=== PATIENT | female | born 1980 | race Caucasian/White ===

== ENCOUNTER → 2019-11-11 | Outpatient (CLI) | payer OTHER ==
[2015-12-23 20:50] VITALS: BP 108/74
[~2019-11-11] MED LIST: IBUP-1007 PO
--- NOTE | 2019-11-14 10:24 | RAD ---
EXAM: PET W CT SKULL TO MIDTHI EXAM DATE: 11/11/2019 INDICATION: Lung mass RADIOPHARMACEUTICAL: 15.5 mCi of F-18 Fluorodeoxyglucose (FDG) I.V. via the right antecubital fossa. TECHNIQUE: Patient weight: 180 pounds. Following at least four-hour fasting, the patient's blood glucose was 112 mg/dl. Approximately 1 hour after administration of FDG, overlapping emission scanning was performed from the orbital meatal line through the pelvis. A low-dose CT was performed for attenuation correction purposes and anatomic localization. Fused images of PET and CT were reviewed. Any standardized uptake values (SUV) reported are maximum values within a volume region of interest, expressed in gm/ml. COMPARISON: CT soft tissue neck with IV contrast of 11/20/2015 FINDINGS: PET: In the head and neck, prominent uptake in the bilateral faucial and lingual tonsils is seen, to max SUV of 7.29 on the left faucial tonsil, 6.48 and the right faucial tonsil and 4.17 and the lingual tonsil. No abnormal uptake in the cervical lymph nodes or intracranially is noted. In the chest, a superior segment left lower lobe lung mass shows FDG uptake to max SUV of 2.73. There is also abnormal FDG uptake in the distal thoracic esophagus and in the gastric cardia to max SUV of 5.59. Mediastinal background activity measures 2.5 to max SUV. In the abdomen, localized uptake in hepatic segment 4A to max SUV of 4.89 is seen, above background liver activity of 3.13. There is localized FDG uptake in the region of the ampulla of [place] to max SUV of 3.02. In the pelvis, asymmetric focal uptake in the anterior right thigh muscles along the lateral aspect of the iliopsoas muscle superficial to the right femoral head shows FDG uptake to max SUV of 8.97. CT: Head and neck shows right greater than left bilateral mild faucial tonsillar enlargement is no cervical adenopathy by CT size criteria on unenhanced imaging. Thyroid and salivary glands are unremarkable. No aggressive osseous lesions. No acute intracranial findings. Chest shows a lobulated superior segment left lower lobe lung mass measuring 3.2 x 3.0 cm x 3.3 cm (AP by transverse by craniocaudal), minimal right greater than left biapical paraseptal pattern emphysematous change and mild mosaic pattern to the lungs that could reflect minimal air trapping. No pleural effusion no mediastinal adenopathy or mass. Minimal wall thickening of the distal thoracic esophagus near the gastroesophageal junction. Abdomen and pelvis show very subtle 3 cm mass in hepatic segment 4. No other solid abdominal organ lesions are identified. No evidence of bowel obstruction, perforation or acute inflammation. No abdominal adenopathy, ascites, mass or nodularity. No free air. Normal caliber major abdominal vessels with scattered arterial calcifications. Pelvic organs show an absent uterus, normal urinary bladder and no pelvic mass. The ovaries are not well seen and may be surgically absent as well. No fluid collection. No pelvic adenopathy. Bones show no acute or aggressive appearing osseous lesions.. No discrete muscle or soft tissue mass in the pelvis is identified. IMPRESSION: 1. Left lung mass shows abnormal FDG uptake to max SUV of 2.73. Favor primary lung malignancy over metastatic deposit or inflammatory mass. Recommend biopsy. 2. Distal thoracic esophageal wall thickening shows abnormal FDG uptake to max SUV of 5.59. Consider correlation with endoscopy. 3. Right hepatic lobe subtle 3 cm mass shows uptake to max SUV of 4.89. This could be better characterized with liver mass protocol abdominal MRI or CT as clinically warranted. 4. Uptake in the proximal small bowel, right hip and in Waldeyer's ring as described could be benign and incidental. Attention on follow-up is recommended. Electronically signed by: Poonam Paredes MD (11/14/2019 10:21 AM) [id number]
== END ==
LOC: PETSC 09:03
PROVIDERS: ATTEND Internal Medicine Critical Care Medicine
DX: C80.1 Malignant (primary) neoplasm, unspecified (principal); R91.8 Other nonspecific abnormal finding of lung field
CPT/HCPCS: 78815; A9552

== ENCOUNTER 2019-11-24 06:55 | Outpatient (CLI) | payer OTHER ==
[2019-11-24] VITALS (24 sets, daily range): BP systolic 11–140; BP diastolic 58–93
[~2019-11-24] VITALS: Ht 154.9 cm; Wt 81.6 kg
[2019-11-24 07:36] LABS: BASO # 0.1 x10^3/uL (0.0-0.2); BASO % 1 % (0-3); EOS # 0.1 x10^3/uL (0.0-0.7); EOS % 2 % (0-3); HEMATOCRIT 42.9 % (36.0-47.0); HEMOGLOBIN 14.8 g/dL (12.0-15.5); LYMPH % 46 % (24-48); MEAN CORPUSCULAR HEMOGLOBIN 31 pg (25-35); MEAN CORPUSCULAR HGB CONC 35 g/dL (31-37); MEAN CORPUSCULAR VOLUME 91 fL (79-100); MONO # 0.4 x10^3/uL (0.0-1.1); MONO % 7 % (0-9); NEUT % 45 % (31-73); PLATELET COUNT 408 x10^3/uL (140-400); RED BLOOD COUNT 4.72 x10^6/uL (3.50-5.40); RED CELL DISTRIBUTION WIDTH 12.9 % (11.5-14.5); WHITE BLOOD COUNT 6.6 x10^3/uL (4.0-11.0)
[2019-11-24 07:47] LABS: PROTHROMBIN TIME PATIENT 12.1 SEC (11.7-14.0)
[2019-11-24] MEDS ORDERED: LIDOCAINE WITH 8.4% SOD BICARB 3 ML DISP.SYRIN. ONE (08:18)
[2019-11-24] MEDS ORDERED: MIDAZOLAM HCL/PF 2 MG/2 ML VIAL. ONE (08:21)
[2019-11-24] MEDS ORDERED: fentaNYL PF VIAL 100 MCG/2 ML VIAL ONE (08:21)
[2019-11-24] MEDS ORDERED: LIDOCAINE WITH 8.4% SOD BICARB 3 ML DISP.SYRIN. INJ ONE (08:30)
[2019-11-24] MEDS ORDERED: MIDAZOLAM HCL/PF 2 MG/2 ML VIAL. IV ONE (08:30)
[2019-11-24] MEDS ORDERED: fentaNYL PF VIAL 100 MCG/2 ML VIAL IV ONE (08:30)
--- NOTE | 2019-11-24 12:07 | RAD ---
PORTABLE CHEST 1V Clinical Indication: Reason: Post left lung biopsy / Spl. Instructions: / History: Comparison: CT guided lung biopsy, earlier same day.. Findings: The cardiomediastinal silhouette is normal. There is left lower lobe mass. Lungs are otherwise clear. There is no pneumothorax. No pleural effusion is appreciated. No acute bone abnormality. IMPRESSION: 1. No pneumothorax. 2. Left lower lobe mass. Electronically signed by: Rodney Quijano MD (11/24/2019 12:05 PM) [id number]
--- NOTE | 2019-11-24 14:07 | RAD ---
CT-guided biopsy left lung mass. 11/24/2019 12:01 PM Indication: Liver Mass, LEFT LUNG MASS, possible malignancy Discussion: The risks and benefits of the procedure, including but not limited to, bleeding, pneumothorax, and infection were discussed patient. Informed consent was obtained. The patient was brought to the CT scanner and placed in the prone position. A timeout procedure was performed. CT imaging redemonstrates a mass in the left lower lobe. The overlying soft tissues were prepped and draped using maximum sterile barrier technique. 1% lidocaine without epinephrine was administered for local anesthesia. Under intermittent CT guidance, 17-gauge needle was advanced into the mass. Multiple core biopsy samples were obtained samples were placed in formalin. The needle was removed. Manual pressure was held. Repeat CT demonstrates minimal perilesional hemorrhage without pneumothorax or other immediate complication. . The procedure was performed under conscious sedation including continuous cardiopulmonary monitoring via dedicated sedation nurse. Sedation time 27 minutes Impression: CT-guided biopsy, left lower lobe mass. PQRS Compliance Statement: One or more of the following individualized dose reduction techniques were utilized for this examination: 1. Automated exposure control 2. Adjustment of the mA and/or kV according to patient size 3. Use of iterative reconstruction technique
--- NOTE | 2019-11-25 17:07 | PATHOLOGY ---
[facility] Accession Number: [id number] . 01 Material submitted: . lung - LEFT LUNG BIOPSY. Modifiers: left . 01 Clinical history: . Left lung mass . 02 Diagnosis: Lung tissue, left lung mass CT guided needle biopsy: - ADENOCARCINOMA, MIXED ACINAR AND PAPILLARY SUBTYPES, MODERATELY-WELL DIFFERENTIATED. SEE COMMENT. (JPM:[facility] 11/25/2019) P 11/25/2019 1626 Local . 02 Comment: Sections of the left lung mass CT guided needle biopsy show extensive replacement of lung parenchyma by a malignant epithelial neoplasm. The latter consists of crowded acini and papillary structures which are lined by atypical columnar cells which have eosinophilic vacuolated cytoplasm and which possess basally situated, moderately pleomorphic hyperchromatic nuclei containing prominent nucleoli. There are scattered mitotic figures present. The morphologic features are consistent with a diagnosis of pulmonary adenocarcinoma, mixed acinar and papillary subtypes, acinar predominant. A panel of immunoperoxidase stains will be performed, the results of which will be the subject of an addendum report. The case is also examined by Dr. Gramajo, who concurs with the diagnosis. The case is discussed with Dr. Eason on 11/25/2019 at 10:30 AM. (JPM:[facility] 11/25/2019) . 02 Electronically signed: . Awais Noel MD, Pathologist NPI- [id number] . 01 Gross description: . The specimen is received in formalin, labeled "Gabbi Pineda, left lung biopsy" and consists of 2 reeves needle cores measuring 0.6 and 1.8 cm in length and 0.1 cm in diameter. They are entirely submitted intact in A1. (JM; 11/24/2019) JFQ/JFQ 11/24/2019 1531 Local . 02 Pathologist provided ICD-10: C34.92 . 02 CPT . 467184 Specimen Comment: A courtesy copy of this report has been sent to [phone] Specimen Comment: [id number] Specimen Comment: Report sent to / DR EASON Performed at: 01 [facility] [address] [place] [address] [address], [place] [id number] MD Levon Banks MD Phone: [phone] Performed at: 02 [facility] [address] [place], [place] [id number] MD Awais Noel MD Phone: [phone]
== END 2019-11-24 12:45 | disposition home or self-care (01) ==
LOC: INTRAD 06:55
PROVIDERS: ATTEND Internal Medicine Critical Care Medicine
DX: C34.92 Malignant neoplasm of unspecified part of left bronchus or lung (principal)
CPT/HCPCS: 32405; 36415; 71045; 77012; 85025; 85610; 85730; J2250; J3010; J3490; 99152; 99153

== ENCOUNTER 2019-12-06 06:50 | Outpatient (CLI) | payer OTHER ==
[~2019-12-06] VITALS: Ht 154.9 cm; Wt 81.6 kg
[2019-12-06] VITALS (16 sets, daily range): BP systolic 112–149; BP diastolic 74–101
[2019-12-06] MEDS ORDERED: VARE1TAB21 PO (07:25)
[2019-12-06] MEDS ORDERED: GELATIN SPONGE SIZE 12-7MM SPONGE. ONE (07:58)
[2019-12-06] MEDS ORDERED: LIDOCAINE WITH 8.4% SOD BICARB 3 ML DISP.SYRIN. ONE (07:58)
[2019-12-06] MEDS ORDERED: fentaNYL PF VIAL 100 MCG/2 ML VIAL ONE (08:44)
[2019-12-06] MEDS ORDERED: MIDAZOLAM HCL/PF 2 MG/2 ML VIAL. ONE (08:44)
[2019-12-06] MEDS ORDERED: fentaNYL PF VIAL 100 MCG/2 ML VIAL IV ONE (09:00)
[2019-12-06] MEDS ORDERED: LIDOCAINE WITH 8.4% SOD BICARB 3 ML DISP.SYRIN. IJ ONE (09:00)
[2019-12-06] MEDS ORDERED: MIDAZOLAM HCL/PF 2 MG/2 ML VIAL. IV ONE (09:00)
[2019-12-06] MEDS ORDERED: oxyCODONE/APAP 5/325 1 TAB TABLET PO ONE (09:30)
--- NOTE | 2019-12-06 11:28 | NUR ---
Discharge Note: BEAU RAMÍREZ Discharge instructions and discharge home medications reviewed with Patient and a copy given. All questions have been answered and understanding verbalized. Patient ate toast drank fluids with no issues. The following instructions and handouts were given: Moderate sedation and Liver Biopsy after care. Discontinued lines and drains: Right AC, dressing clean dry intact. Patient discharged to home with family member via wheelchair to private vehicle.
--- NOTE | 2019-12-06 12:35 | RAD ---
Procedure: CT guided segment IV hepatic mass biopsy. The procedure, risks, and complications to include bleeding, organ damage, nerve damage, and infection were explained to the patient and her family and they understood and wished to proceed. Consent form signed. INDICATION: Lung cancer, hypoattenuating, hypermetabolic hepatic mass concerning for metastasis COMPARISON: PET/CT dated 11/11/2019 The upper abdomen was prepped and draped using maximal sterile technique and one percent Xylocaine was used for local anesthesia. CT scan: CT scan again showed a subtle area of hypoattenuation in segment IV of the liver corresponding to the hypermetabolic area seen on PET. Technique: Utilizing a coaxial technique, an 18-gauge biopsy needle was advanced into the segment [address] guidance. 5 core biopsies were obtained and placed in formalin for evaluation. Tract was embolized with Gelfoam torpedos. Repeat post biopsy CT scan shows no evidence of immediate complication. Sedation: Initially, procedure was attempted without sedation, but patient started experiencing pain at the region of the liver capsule during biopsy needle advancement. At that point, moderate sedation was initiated. Conscious sedation for 12 minutes. Intravenous Versed and fentanyl were administered. The patient was monitored by pulse oximetry and cardiovascular monitoring equipment and observed by the nurses in attendance. Complications: None Contrast: None The patient tolerated the procedure well and returned to the recovery area in stable condition Conclusion: CT guided segment IV hepatic hypoattenuating lesion biopsy. PQRS Compliance Statement: One or more of the following individualized dose reduction techniques were utilized for this examination: 1. Automated exposure control 2. Adjustment of the mA and/or kV according to patient size 3. Use of iterative reconstruction technique
== END 2019-12-06 11:15 | disposition home or self-care (01) ==
LOC: INTRAD 06:50
PROVIDERS: ATTEND Internal Medicine Pulmonary Disease
DX: R16.0 Hepatomegaly, not elsewhere classified (principal)
CPT/HCPCS: 47000; 77012; 99152; J2250; J3010; J3490

== ENCOUNTER → 2019-12-30 | Outpatient (CLI) | payer OTHER ==
[2019-12-06 10:55] VITALS: BP 118/78
[~2019-12-30] MED LIST changes: +VARE1TAB21 PO
[2019-12-30 11:50] LABS: BASO % 1 % (0-3); EOS # 0.2 x10^3/uL (0.0-0.7); EOS % 3 % (0-3); HEMATOCRIT 41.2 % (36.0-47.0); HEMOGLOBIN 14.8 g/dL (12.0-15.5); LYMPH # 2.7 x10^3/uL (1.0-4.8); LYMPH % 50 % (24-48); MEAN CORPUSCULAR HEMOGLOBIN 32 pg (25-35); MEAN CORPUSCULAR HGB CONC 36 g/dL (31-37); MEAN CORPUSCULAR VOLUME 89 fL (79-100); MONO # 0.5 x10^3/uL (0.0-1.1); MONO % 9 % (0-9); NEUT % 37 % (31-73); PLATELET COUNT 410 x10^3/uL (140-400); RED BLOOD COUNT 4.63 x10^6/uL (3.50-5.40); RED CELL DISTRIBUTION WIDTH 12.9 % (11.5-14.5); WHITE BLOOD COUNT 5.5 x10^3/uL (4.0-11.0)
[2019-12-30 12:07] LABS: CALCIUM 9.1 mg/dL (8.5-10.1); GFR 61.4; POTASSIUM 3.8 mmol/L (3.5-5.1)
[2019-12-30 12:11] LABS: ALBUMIN 3.5 g/dL (3.4-5.0); ALBUMIN/GLOBULIN RATIO 0.8 (1.0-1.7); TOTAL BILIRUBIN 0.2 mg/dL (0.2-1.0); TOTAL PROTEIN 7.9 g/dL (6.4-8.2); URIC ACID 5.2 mg/dL (2.6-6.0)
[2020-01-01 11:09] LABS: KAPPA LAMBDA RATIO 1.03 (0.26-1.65); LAMBDA FREE 21.4 mg/L (5.7-26.3)
[2020-01-02 10:10] LABS: H PYLORI IGA <9.0 units (0.0-8.9); H PYLORI IGM <9.0 units (0.0-8.9)
[2020-01-02 15:12] LABS: ALBUM 3.4 g/dL (2.9-4.4); ALPHA 1 0.2 g/dL (0.0-0.4); PROTEIN TOTAL 6.7 g/dL (6.0-8.5)
== END | disposition home or self-care (01) ==
LOC: ONCLAB 11:24
PROVIDERS: ATTEND Internal Medicine Hematology & Oncology
DX: C34.32 Malignant neoplasm of lower lobe, left bronchus or lung (principal)
CPT/HCPCS: 36415; 80053; 83520; 83615; 84165; 84550; 85025; 86677; 86703; 86705; 86709; 86803; 87340

== ENCOUNTER 2020-01-04 06:40 | Outpatient (CLI) | payer OTHER ==
[~2020-01-04] VITALS: Ht 154.9 cm; Wt 83.0 kg
[2020-01-04] VITALS (9 sets, daily range): BP systolic 102–150; BP diastolic 72–89
[2020-01-04 07:34] LABS: BASO % 1 % (0-3); EOS # 0.2 x10^3/uL (0.0-0.7); EOS % 3 % (0-3); HEMATOCRIT 40.4 % (36.0-47.0); HEMOGLOBIN 14.1 g/dL (12.0-15.5); LYMPH # 3.2 x10^3/uL (1.0-4.8); LYMPH % 46 % (24-48); MEAN CORPUSCULAR HEMOGLOBIN 32 pg (25-35); MEAN CORPUSCULAR HGB CONC 35 g/dL (31-37); MEAN CORPUSCULAR VOLUME 91 fL (79-100); MONO # 0.5 x10^3/uL (0.0-1.1); MONO % 7 % (0-9); NEUT # 3.1 x10^3/uL (1.8-7.7); NEUT % 44 % (31-73); PLATELET COUNT 403 x10^3/uL (140-400); RED BLOOD COUNT 4.46 x10^6/uL (3.50-5.40); RED CELL DISTRIBUTION WIDTH 13.3 % (11.5-14.5)
[2020-01-04] MEDS ORDERED: LIDOCAINE WITH 8.4% SOD BICARB 3 ML DISP.SYRIN. ONE (07:44)
[2020-01-04 07:49] LABS: CALCIUM 9.1 mg/dL (8.5-10.1); GFR 61.4; POTASSIUM 4.1 mmol/L (3.5-5.1)
[2020-01-04 07:55] LABS: ALBUMIN 3.5 g/dL (3.4-5.0); TOTAL BILIRUBIN 0.2 mg/dL (0.2-1.0); TOTAL PROTEIN 7.1 g/dL (6.4-8.2)
[2020-01-04 07:58] LABS: PROTHROMBIN TIME PATIENT 11.8 SEC (11.7-14.0)
[2020-01-04] MEDS ORDERED: MIDAZOLAM HCL/PF 2 MG/2 ML VIAL. ONE (08:24)
[2020-01-04] MEDS ORDERED: fentaNYL PF VIAL 100 MCG/2 ML VIAL ONE (08:24)
[2020-01-04] MEDS: LIDOCAINE WITH 8.4% SOD BICARB 3 ML DISP.SYRIN. IJ ONE (08:46)
[2020-01-04] MEDS: MIDAZOLAM HCL/PF 2 MG/2 ML VIAL. IV ONE (08:47)
[2020-01-04] MEDS: fentaNYL PF VIAL 100 MCG/2 ML VIAL IV ONE (08:47)
--- NOTE | 2020-01-04 09:46 | NUR ---
Discharge Note: BEAU RAMÍREZ Discharge instructions and discharge home medications reviewed with Patient and a copy given. All questions have been answered and understanding verbalized. The following instructions and handouts were given: post bone marrow biopsy and adult moderate sedation Discontinued lines and drains: Peripheral IV intact. Patient discharged to Home or Self Care withFamily Membervia Wheelchair
--- NOTE | 2020-01-04 09:54 | NUR ---
pt discharged to home with family. Discharge instructions reviewed and PIV dc'd. pt ambulated and tolerated PO
--- NOTE | 2020-01-04 16:07 | RAD ---
CT-guided bone marrow biopsy. 01/04/2020 2:04 PM Indication: Lymphoma Discussion: The risks and benefits of the procedure, including but not limited to, bleeding and infection were discussed patient. Informed consent was obtained. The patient was brought to the CT scanner and placed in the prone position. A timeout procedure was performed. [employer] CT imaging of the pelvis demonstrated left ilium amenable to bone marrow biopsy. The overlying soft tissues were prepped and draped using maximum sterile barrier technique. 1% lidocaine without epinephrine was administered for local anesthesia. Under intermittent CT guidance, an OncControl needle was advanced into the bone marrow of the left iliac crest. 2 Aspirates and 1 core biopsy samples were obtained. Samples were delivered to pathology was present at the time of procedure. The needle was removed and manual pressure held to achieve hemostasis. No immediate complications were identified. The procedure was performed under conscious sedation including continuous cardiopulmonary monitoring via dedicated sedation nurse. Sedation time: 26 minutes Impression: Successful CT-guided bone marrow biopsy of the left iliac crest . PQRS Compliance Statement: One or more of the following individualized dose reduction techniques were utilized for this examination: 1. Automated exposure control 2. Adjustment of the mA and/or kV according to patient size 3. Use of iterative reconstruction technique
--- NOTE | 2020-01-10 17:07 | PATHOLOGY ---
[facility] Accession Number: [id number] . 01 Material submitted: . PART A: bone - BONE MARROW BIOPSY PART B: bone - BONE MARROW CLOT PART C: bone - BONE MARROW ASPIRATE SLIDES PART D: bone - PERIPHERAL BLOOD SMEARS PART E: bone - BONE MARROW FLOW . 01 Clinical history: . Adenocarcinoma of the lung. . 02 Diagnosis: Peripheral smear: - Borderline slight thrombocytosis. . Bone marrow, aspirate smears, clot section, core biopsy: - Normocellular marrow showing trilineage hematopoiesis, no significant dyspoiesis, and negative for lymphomatous involvement. - Adequate reticuloendothelial iron stores. (JPM:[facility]; 01/10/2020) [facility] [place] 01/10/2020 1152 Local . 02 Comment: The peripheral smear shows a borderline slight thrombocytosis. There is no leukocytosis or anemia. The bone marrow is normocellular and shows trilineage hematopoiesis with no significant dyspoiesis. Flow cytometric analysis shows no immunophenotypic evidence of a lymphoproliferative disorder, increase in blasts, or plasma cell neoplasm. The bone marrow biopsy and clot sections show no morphologic or immunophenotypic evidence of involvement by low grade B-cell lymphoma. (JPM:bereket; 01/10/2020) . . Special stains performed: Retic stain on A1, iron stain on B1 and C1, and immunoperoxidase stains for CD20 and CD3 on A1, and for CD20 and CD3 on B1. . 02 Electronically signed: . Awais Noel MD, Pathologist NPI- [id number] . 01 Gross description: . A. The specimen is received in formalin, labeled "Gabbi Alamosery, BM BX". Received is a single needle core of light reeves bone measuring 2.8 cm in length by 0.3 cm in diameter. The specimen is submitted entirely in cassette A1, following light decalcification. . B. The specimen is received in formalin, labeled "Gabbi Pineda, BM aspirate clot". Received is blood coagulum measuring 0.1 x 0.1 x 0.1 cm in aggregate dimensions. The specimen is filtered and entirely submitted in cassette B1. Due to the minute nature of the specimen, it may not survive processing. (CAA; 01/04/2020) QA/QA 01/10/2020 1131 Local . 02 Microscopic: . Laboratory Data: The WBC count is 7.0 K/CMM, and the automated WBC differential reveals 44% neutrophils, 46% lymphs, 7% monos, 3% eos, and 1% baso. The RBC count is 4.46 M/CMM, hemoglobin 14.1 G/DL, hematocrit 40.4%, MCV 91 FL, MCH 32 PG, MCHC 35 G/DL, and the RDW is 13.3%. The platelet count is 403 K/CMM. The total protein is 7.1 G/DL, albumin 3.5 G/DL, and globulin 3.6 G/DL. Serum protein electrophoresis shows no evidence of a monoclonal spike. The serum kappa is 22.0 MG/L, serum lambda 21.4 MG/L, and the kappa/lambda ratio is 1.03. . Peripheral Smear: The peripheral smear is reviewed. The WBC count is normal. The WBC differential reveals nearly equal-sized populations of segmented neutrophils and lymphocytes, with small populations of monocytes and eosinophils noted. Neutrophils do not show dysplastic changes. There is no significant neutrophilic left shift. There is no leukoerythroblastic reaction. The lymphocyte population consists predominantly of small lymphocytes, having a high N/C ratio and rounded nuclei having a coarsely clumped chromatin. Red blood cells appear normochromic and normocytic and show no significant anisopoikilocytosis. Platelets are borderline slightly increased and appear normal in morphology. . Aspirate Smears and Touch Imprints: Two Blanca's-stained and one iron-stained aspirate smears, and one Blanca's-stained biopsy touch imprint are examined. The smears contain multiple marrow particles. The M/E ratio is within normal range. Erythroid maturation appears normoblastic. There are no megaloblastic or overt dysplastic changes. Granulopoiesis qualitatively appears normal. There is no significant left shift or dysplastic changes. There is no increase of blasts. Megakaryocytes appear adequate in number and are of variable ploidy. There are few scattered admixed plasma cells with no significant increase of plasma cells noted. Lymphocytes are not increased. There is no atypical lymphoreticular infiltrate. The iron stain is insufficient for evaluation of iron stores due to a lack of marrow particles. No ringed sideroblasts are identified. The biopsy touch imprint reveals an admixture of hematopoietic precursors with no atypical lymphoreticular infiltrate noted. . Bone Marrow Biopsy and Clot Sections: Sections of the bone marrow biopsy reveal segments of bone marrow showing focal aspiration artifact and hemorrhage. Preserved areas of the biopsy range between 20-30% and 60% cellular. The clot sections contain several marrow particles which show a similar range of cellularity. There is trilineage hematopoiesis. There is a good admixture of erythroid and granulocytic precursors, which are present in varying stages of maturation. Megakaryocytes appear normal in number and are occasionally present in small clusters. The megakaryocytes are of variable ploidy. There is no increase of plasma cells. There is no atypical lymphoid infiltrate. There are no granulomas. There are no cells foreign to the marrow. To confirm flow cytometric findings and characterize the target cells in a tissue architectural context, a limited panel of immunoperoxidase stains is obtained on the biopsy and clot section and yield the following results: . CD20 (A1): Small population of small lymphocytes positive (approximately 5%) having a scattered interstitial distribution. CD3 (A1): Population of small lymphocytes positive (approximately 10-20%) having a scattered interstitial distribution and occasionally present in small clusters. CD20 (B1): Small population of small lymphocytes positive (approximately 5%) having a scattered interstitial distribution. CD3 (B1): Population of small lymphocytes positive (approximately 10-20%) having a scattered interstitial distribution. . A reticulin stain obtained on the biopsy shows no significant increase of reticulin fibers. An iron stain obtained on the clot section shows adequate to focally mildly increased reticuloendothelial iron stores. No ringed sideroblasts are identified. . . Special Studies: Bone marrow submitted for flow cytometric analysis has a viability of 96.8%. Granulocytes comprise 77.6% of total cells and show phenotypic evidence of maturation. CD45 dim, CD34 positive cells comprise 1.0% of total cells. Monocytes comprise 4.3% of total cells and show phenotypic evidence of maturation. Plasma cells comprise 0.2% of total cells and show unremarkable surface marker expression. Lymphocytes comprise 14.9% of total cells. T-cells comprise 79% of lymphoid cells and show a CD4/CD8 ratio of 2.4. NK-cells comprise 3% of lymphoid cells. Mature B-cells comprise 15% of lymphoid cells and are polyclonal with kappa:lambda ratio of 1.2. . Bone marrow submitted for cytogenetic analysis shows a normal female karyotype in all cells analyzed. (JPM/db; 01/09/2020) . 02 Pathologist provided ICD-10: D47.3 . 02 CPT . 366763, 402002, 966093, 914699, 231728, 532120, 042007, 241715, L22781, [id number] Specimen Comment: A courtesy copy of this report has been sent to [phone] Specimen Comment: [id number] Specimen Comment: Report sent to / DR FRAZIER Performed at: 01 [facility] [address] [facility] [address], [place] [id number] MD Levon Banks MD Phone: [phone] Performed at: 02 [facility] [address] [place], [place] [id number] MD Awais Noel MD Phone: [phone]
== END 2020-01-04 09:55 | disposition home or self-care (01) ==
LOC: INTRAD 06:40
PROVIDERS: ATTEND Internal Medicine Hematology & Oncology
DX: C34.32 Malignant neoplasm of lower lobe, left bronchus or lung (principal); D47.3 Essential (hemorrhagic) thrombocythemia; F17.210 Nicotine dependence, cigarettes, uncomplicated; Z88.8 Allergy status to other drugs, medicaments and biological substances; Z79.899 Other long term (current) drug therapy
CPT/HCPCS: 36415; 38222; 77012; 80053; 85025; 85610; 88184; 88185; 88237; 88305; 88311; 88313; 88341; 88342; 99152; 99153; J2250; J3010; J3490

== ENCOUNTER 2020-01-30 08:42 | Outpatient (CLI) | payer OTHER ==
[~2020-01-30] VITALS: Ht 154.9 cm; Wt 84.8 kg
[2020-01-30 09:05] VITALS: BP 124/80
[2020-01-30] MEDS ORDERED: LIDOCAINE WITH 8.4% SOD BICARB 3 ML DISP.SYRIN. ONE (09:14)
[2020-01-30] MEDS ORDERED: GELATIN SPONGE SIZE 12-7MM SPONGE. ONE (09:14)
[2020-01-30] MEDS ORDERED: MIDAZOLAM HCL/PF 5 MG/5 ML VIAL. ONE (09:26)
[2020-01-30] MEDS ORDERED: fentaNYL PF VIAL 100 MCG/2 ML VIAL ONE (09:27)
[2020-01-30 09:45] VITALS: BP 123/78
[2020-01-30] MEDS ORDERED: GELATIN SPONGE SIZE 12-7MM SPONGE. TP ONE (09:45)
[2020-01-30] MEDS ORDERED: fentaNYL PF VIAL 100 MCG/2 ML VIAL IV ONE (09:45)
[2020-01-30] MEDS ORDERED: LIDOCAINE WITH 8.4% SOD BICARB 3 ML DISP.SYRIN. IJ ONE (09:45)
[2020-01-30] MEDS ORDERED: MIDAZOLAM HCL/PF 5 MG/5 ML VIAL. IV ONE (09:45)
[2020-01-30 09:50] VITALS: BP 118/70
[2020-01-30 09:55] VITALS: BP 126/86
[2020-01-30 10:00] VITALS: BP 140/83
--- NOTE | 2020-01-30 10:04 | NUR ---
Dr. Ferrer spoke with patient's oncologist and another biopsy is not going to effect patient's treatment plan so they decided to wait on doing another biopsy. Patient will be having additional scans with her treatment so they will monitor the situation closely and biopsy in the future if needed.
== END 2020-01-30 10:15 | disposition home or self-care (01) ==
LOC: INTRAD 08:42
PROVIDERS: ATTEND Internal Medicine Hematology & Oncology
DX: Z53.8 Procedure and treatment not carried out for other reasons (principal); C85.88 Other specified types of non-Hodgkin lymphoma, lymph nodes of multiple sites; K21.9 Gastro-esophageal reflux disease without esophagitis; Z79.82 Long term (current) use of aspirin; Z98.890 Other specified postprocedural states; Z88.5 Allergy status to narcotic agent
CPT/HCPCS: 74150

== ENCOUNTER 2020-02-02 19:26 | Emergency (ER) | payer OTHER ==
[~2020-02-02] VITALS: Ht 154.9 cm; Wt 85.0 kg
[2020-02-02 19:54] VITALS: BP 134/86
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
== END 2020-02-02 20:59 | disposition home or self-care (01) ==
LOC: ER 19:26
DX: S00.83XA Contusion of other part of head, initial encounter (principal); H53.8 Other visual disturbances; K21.9 Gastro-esophageal reflux disease without esophagitis; Z90.89 Acquired absence of other organs; Z90.710 Acquired absence of both cervix and uterus; Z85.9 Personal history of malignant neoplasm, unspecified; Z98.890 Other specified postprocedural states; Z88.6 Allergy status to analgesic agent; Y08.89XA Assault by other specified means, initial encounter; Y93.89 Activity, other specified; Y92.89 Other specified places as the place of occurrence of the external cause; Y99.0 Civilian activity done for income or pay
CPT/HCPCS: 99281

== ENCOUNTER 2020-02-11 00:51 | Emergency (ER) | payer OTHER ==
[~2020-02-11] VITALS: Ht 154.9 cm; Wt 85.4 kg
[2020-02-11] MEDS ORDERED: DEXAMETHASONE SOD PHOS 20 MG/5 ML VIAL. PO ONE (01:15)
[2020-02-11] MEDS ORDERED: ACETAMINOPHEN 325 MG TABLET. PO ONE (01:15)
[2020-02-11] MEDS ORDERED: AZIT250T PO (01:47)
--- NOTE | 2020-02-11 01:47 | PHYS DOC ---
Past Medical History Past Medical History: Cancer, GERD Additional Past Medical Histor: NON HODKINS LYMPHOMA Past Surgical History: Hysterectomy, Oophorectomy Additional Past Surgical Histo: Bladder pin-up Smoking Status: Never Smoker Alcohol Use: None Drug Use: None General Adult EDM: Chief Complaint: FEVER HPI: HPI: Patient is a 39 year old female presents with the chief complaint of sore throat sinus congestion and fever. States she woke up with symptoms this AM. Went to [employer] this afternoon and had a covid test. States test was negative. Review of Systems: Review of Systems: Constitutional: positive fever[] Eyes: Denies change in visual acuity. [] HENT: positive nasal congestion or sore throat. [] Respiratory: Denies cough or shortness of breath. [] Cardiovascular: Denies chest pain or edema. [] GI: Denies abdominal pain, nausea, vomiting, bloody stools or diarrhea. [] : Denies dysuria. [] Musculoskeletal: Denies back pain or joint pain. [] Integument: Denies rash. [] Neurologic: Denies headache, focal weakness or sensory changes. [] Endocrine: Denies polyuria or polydipsia. [] Lymphatic: Denies swollen glands. [] Psychiatric: Denies depression or anxiety. [] Heart Score: Risk Factors: Risk Factors: DM, Current or recent (<one month) smoker, HTN, HLP, family history of CAD, obesity. Risk Scores: Score 0 - 3: 2.5% MACE over next 6 weeks - Discharge Home Score 4 - 6: 20.3% MACE over next 6 weeks - Admit for Clinical Observation Score 7 - 10: 72.7% MACE over next 6 weeks - Early Invasive Strategies Current Medications: Current Medications Medications (Trade) Dose Ordered Sig/[facility] Start Time Stop Time Status Last Admin Dose Admin Acetaminophen (Tylenol) 650 mg 1X ONCE 02/11/20 01:15 02/11/20 01:16 DC 02/11/20 01:23 650 MG Dexamethasone Sodium Phosphate (Decadron) 10 mg 1X ONCE 02/11/20 01:15 02/11/20 01:16 DC 02/11/20 01:23 10 MG Allergies: Allergies: Allergies Coded Allergies Type Severity Reaction Last Updated Verified morphine Allergy Mild Nausea and Vomiting, Itching, Hives 01/30/20 Yes Physical Exam: PE: Constitutional: Well developed, well nourished, no acute distress, non-toxic appearance. [] HENT: Normocephalic, atraumatic, bilateral external ears normal, oropharynx moist, no oral exudates, nose normal. [pharyngeal erythema, Eyes: PERRLA, EOMI, conjunctiva normal, no discharge. [] Neck: Normal range of motion, no tenderness, supple, no stridor. [] Cardiovascular:Heart rate regular rhythm, no murmur [] Lungs & Thorax: Bilateral breath sounds clear to auscultation [] Abdomen: Bowel sounds normal, soft, no tenderness, no masses, no pulsatile masses. [] Skin: Warm, dry, no erythema, no rash. [] Back: No tenderness, no CVA tenderness. [] Extremities: No tenderness, no cyanosis, no clubbing, ROM intact, no edema. [] Neurologic: Alert and oriented X 3, normal motor function, normal sensory function, no focal deficits noted. [] Psychologic: Affect normal, judgement normal, mood normal. [] EKG: EKG: [] Radiology/Procedures: Radiology/Procedures: [] Course & Med Decision Making: Course & Med Decision Making Pertinent Labs and Imaging studies reviewed. (See chart for details) []rapid strep negative Will re swab for covid. Patient states she swabbed herself today-- states she felt uncomfortable doing so and is unsure if she got adequate sample. Treated with decadron and tylenol in ER Will dc with zithromax Hillary Disclaimer: Hillary Disclaimer: This electronic medical record was generated, in whole or in part, using a voice recognition dictation system. Departure Departure Impression: Primary Impression: Pharyngitis Additional Impressions: Fever Person under investigation for COVID-19 Disposition: HOME, SELF-CARE Condition: STABLE Referrals: NO PCP (PCP) Patient Instructions: Fever, Viral and Bacterial Pharyngitis Scripts Azithromycin (ZITHROMAX) 250 Mg Tablet 2 TAB PO UD, #10 TAB 500mg po q day x 5 Prov: MARLA MEDEL DO 02/11/20 Justicifation of Admission Dx: Justifications for Admission: Justification of Admission Dx: N/A MARLA MEDEL DO Feb 11, 2020 01:47
[2020-02-11 02:05] VITALS: BP 138/88
== END 2020-02-11 02:07 | disposition home or self-care (01) ==
LOC: ER 00:51
DX: J02.9 Acute pharyngitis, unspecified (principal); Z20.828 Contact with and (suspected) exposure to other viral communicable diseases; R50.9 Fever, unspecified; R09.81 Nasal congestion; L53.9 Erythematous condition, unspecified; K21.9 Gastro-esophageal reflux disease without esophagitis; Z85.9 Personal history of malignant neoplasm, unspecified; Z90.710 Acquired absence of both cervix and uterus; Z90.89 Acquired absence of other organs; Z98.890 Other specified postprocedural states
CPT/HCPCS: 87070; 87880; 99283; J1100; U0003

== ENCOUNTER → 2020-03-23 | Outpatient (CLI) | payer OTHER ==
[~2020-03-23] MED LIST changes: +AZIT250T PO
[2020-03-23 13:05] LABS: BASO # 0.1 x10^3/uL (0.0-0.2); BASO % 1 % (0-3); EOS # 0.4 x10^3/uL (0.0-0.7); EOS % 5 % (0-3); HEMATOCRIT 41.5 % (36.0-47.0); HEMOGLOBIN 14.3 g/dL (12.0-15.5); LYMPH # 2.8 x10^3/uL (1.0-4.8); LYMPH % 36 % (24-48); MEAN CORPUSCULAR HEMOGLOBIN 31 pg (25-35); MEAN CORPUSCULAR HGB CONC 34 g/dL (31-37); MEAN CORPUSCULAR VOLUME 90 fL (79-100); MONO # 0.5 x10^3/uL (0.0-1.1); MONO % 6 % (0-9); NEUT % 52 % (31-73); PLATELET COUNT 494 x10^3/uL (140-400); RED BLOOD COUNT 4.59 x10^6/uL (3.50-5.40); RED CELL DISTRIBUTION WIDTH 13.6 % (11.5-14.5); WHITE BLOOD COUNT 7.7 x10^3/uL (4.0-11.0)
[2020-03-23 13:19] LABS: CALCIUM 9.2 mg/dL (8.5-10.1); CREATININE 0.9 mg/dL (0.6-1.0); GFR 69.3; POTASSIUM 3.7 mmol/L (3.5-5.1)
[2020-03-23 13:27] LABS: ALBUMIN 3.5 g/dL (3.4-5.0); ALBUMIN/GLOBULIN RATIO 0.8 (1.0-1.7); TOTAL BILIRUBIN 0.3 mg/dL (0.2-1.0); TOTAL PROTEIN 7.9 g/dL (6.4-8.2)
== END ==
LOC: ONCLAB 12:49
PROVIDERS: ATTEND Internal Medicine Hematology & Oncology
DX: C34.32 Malignant neoplasm of lower lobe, left bronchus or lung (principal)
CPT/HCPCS: 36415; 80053; 83615; 85025

== ENCOUNTER → 2020-04-11 | Outpatient (CLI) | payer OTHER ==
[2020-04-11 13:09] LABS: BASO % 1 % (0-3); EOS # 0.3 x10^3/uL (0.0-0.7); EOS % 5 % (0-3); HEMATOCRIT 42.8 % (36.0-47.0); HEMOGLOBIN 14.7 g/dL (12.0-15.5); LYMPH # 2.8 x10^3/uL (1.0-4.8); LYMPH % 43 % (24-48); MEAN CORPUSCULAR HEMOGLOBIN 31 pg (25-35); MEAN CORPUSCULAR HGB CONC 34 g/dL (31-37); MEAN CORPUSCULAR VOLUME 90 fL (79-100); MONO # 0.4 x10^3/uL (0.0-1.1); MONO % 6 % (0-9); NEUT % 46 % (31-73); PLATELET COUNT 364 x10^3/uL (140-400); RED BLOOD COUNT 4.75 x10^6/uL (3.50-5.40); RED CELL DISTRIBUTION WIDTH 13.1 % (11.5-14.5); WHITE BLOOD COUNT 6.6 x10^3/uL (4.0-11.0)
[2020-04-11 13:17] LABS: CALCIUM 9.7 mg/dL (8.5-10.1); GFR 61.4; POTASSIUM 3.8 mmol/L (3.5-5.1)
[2020-04-11 13:22] LABS: ALBUMIN 3.8 g/dL (3.4-5.0); TOTAL BILIRUBIN 0.2 mg/dL (0.2-1.0); TOTAL PROTEIN 7.8 g/dL (6.4-8.2)
== END ==
LOC: ONCLAB 12:46
PROVIDERS: ATTEND Internal Medicine Hematology & Oncology
DX: C34.32 Malignant neoplasm of lower lobe, left bronchus or lung (principal)
CPT/HCPCS: 36415; 80053; 85025

== ENCOUNTER → 2020-05-09 | Outpatient (CLI) | payer OTHER ==
[~2020-05-09] MED LIST changes: +CONTRAST GIVEN. MC PRN; +IOHEXOL 350 MG/ML 100 ML VIAL. IV ONE
--- NOTE | 2020-05-09 09:37 | RAD ---
CT ANGIOGRAPHY CHEST History: Chest pain. Shortest of breath. Technique: CT of the chest was performed with intravenous contrast. PE protocol. Maximum intensity projection coronal and sagittal reconstructions were performed. Exposure: One or more of the following individualized dose reduction techniques were utilized for this examination: 1. Automated exposure control 2. Adjustment of the mA and/or kV according to patient size 3. Use of iterative reconstruction technique. Comparison: PET CT November 11, 2019 Findings: Chest: No pulmonary embolism. No aortic aneurysm or dissection. Postoperative changes left lower lobectomy. Focal atelectasis or scarring within the left upper lobe inferiorly. Mild pulmonary emphysema. No consolidation or pleural effusion. Upper abdomen: The imaged upper abdomen is unremarkable. Bones: No pathologic osseous lesions. Impression: 1. No acute thoracic pathology. No pulmonary embolism. 2. Postoperative changes left lower lobectomy. 3. Mild pulmonary emphysema. Electronically signed by: George Foster DO (05/09/2020 9:34 AM) [id number]
== END ==
LOC: CT 08:47
PROVIDERS: ATTEND Internal Medicine Critical Care Medicine
DX: J43.9 Emphysema, unspecified (principal); Z90.2 Acquired absence of lung [part of]
CPT/HCPCS: 71275; Q9967

== ENCOUNTER → 2020-08-13 | Outpatient (CLI) | payer OTHER ==
[~2020-08-13] MED LIST changes: -CONTRAST GIVEN. MC PRN; -IOHEXOL 350 MG/ML 100 ML VIAL. IV ONE
[2020-08-13 13:36] LABS: BASO % 0 % (0-3); EOS # 0.2 x10^3/uL (0.0-0.7); EOS % 4 % (0-3); HEMATOCRIT 39.6 % (36.0-47.0); HEMOGLOBIN 13.5 g/dL (12.0-15.5); LYMPH # 2.7 x10^3/uL (1.0-4.8); LYMPH % 43 % (24-48); MEAN CORPUSCULAR HEMOGLOBIN 31 pg (25-35); MEAN CORPUSCULAR HGB CONC 34 g/dL (31-37); MEAN CORPUSCULAR VOLUME 91 fL (79-100); MONO # 0.4 x10^3/uL (0.0-1.1); MONO % 6 % (0-9); NEUT # 2.9 x10^3/uL (1.8-7.7); NEUT % 47 % (31-73); PLATELET COUNT 425 x10^3/uL (140-400); RED BLOOD COUNT 4.36 x10^6/uL (3.50-5.40); RED CELL DISTRIBUTION WIDTH 12.9 % (11.5-14.5); WHITE BLOOD COUNT 6.3 x10^3/uL (4.0-11.0)
[2020-08-13 13:48] LABS: CALCIUM 8.8 mg/dL (8.5-10.1); CREATININE 0.7 mg/dL (0.6-1.0); GFR 92.7; POTASSIUM 3.7 mmol/L (3.5-5.1)
[2020-08-13 13:54] LABS: ALBUMIN 3.5 g/dL (3.4-5.0); ALBUMIN/GLOBULIN RATIO 0.8 (1.0-1.7); TOTAL BILIRUBIN 0.2 mg/dL (0.2-1.0); TOTAL PROTEIN 7.7 g/dL (6.4-8.2)
== END ==
LOC: ONCLAB 12:27
PROVIDERS: ATTEND Internal Medicine Hematology & Oncology
DX: C34.32 Malignant neoplasm of lower lobe, left bronchus or lung (principal); C85.89 Other specified types of non-Hodgkin lymphoma, extranodal and solid organ sites
CPT/HCPCS: 36415; 80053; 83615; 85025

== ENCOUNTER → 2020-11-13 | Outpatient (CLI) | payer OTHER ==
[~2020-11-13] MED LIST changes: +IOHEXOL 300 MG/ML 100ML VIAL. IV ONE
--- NOTE | 2020-11-13 15:46 | RAD ---
CT of the chest with contrast 11/13/2020 INDICATION: History of hepatic lymphoma. History of lung adenocarcinoma. STUDY: CT of the chest May 09, 2020 TECHNIQUE: Multidetector CT imaging of the chest was performed following the administration of IV con trast. FINDINGS: Heart size is normal. No pathologically enlarged mediastinal adenopathy is seen. No pneumot horax, pleural effusion, or new focal infiltrate is seen. Postoperative changes following left lower lobectomy again noted. Some linear groundglass opacification in the right lower lobe is unchanged in configuration with respect to comparison study from May 2020. Right lung is grossly clear. Limit ed visualization of the upper abdomen demonstrates no acute abnormality. No acute osseous changes are seen. IMPRESSION: 1. Stable appearance of the chest including postoperative changes following left lower lobectomy. No evidence of recurrent or metastatic thoracic disease is identified 2. No evidence of acute cardiopulmonary process CT DOSING PQRS STATEMENT: One or more of the following individualized dose reduction techniques were utilized for this examinat ion: 1. Automated exposure control 2. Adjustment of the mA and/or kV according to patient size 3. Use of iterative reconstruction technique Electronically signed by: Junito Ferrer MD (11/13/2020 3:44 PM) [id number]
== END ==
LOC: CT 13:09
PROVIDERS: ATTEND Internal Medicine Hematology & Oncology
DX: C34.32 Malignant neoplasm of lower lobe, left bronchus or lung (principal)
CPT/HCPCS: 71260; Q9967

== ENCOUNTER → 2020-11-20 | Outpatient (CLI) | payer OTHER ==
[~2020-11-20] MED LIST changes: -IOHEXOL 300 MG/ML 100ML VIAL. IV ONE
[2020-11-20 13:27] LABS: BASO % 0 % (0-3); EOS # 0.2 x10^3/uL (0.0-0.7); EOS % 3 % (0-3); HEMATOCRIT 38.5 % (36.0-47.0); HEMOGLOBIN 13.5 g/dL (12.0-15.5); LYMPH % 40 % (24-48); MEAN CORPUSCULAR HEMOGLOBIN 31 pg (25-35); MEAN CORPUSCULAR HGB CONC 35 g/dL (31-37); MEAN CORPUSCULAR VOLUME 89 fL (79-100); MONO # 0.6 x10^3/uL (0.0-1.1); MONO % 7 % (0-9); NEUT # 3.8 x10^3/uL (1.8-7.7); NEUT % 50 % (31-73); PLATELET COUNT 402 x10^3/uL (140-400); RED BLOOD COUNT 4.31 x10^6/uL (3.50-5.40); RED CELL DISTRIBUTION WIDTH 12.8 % (11.5-14.5); WHITE BLOOD COUNT 7.6 x10^3/uL (4.0-11.0)
[2020-11-20 13:42] LABS: CALCIUM 8.7 mg/dL (8.5-10.1); GFR 61.1; POTASSIUM 4.1 mmol/L (3.5-5.1)
[2020-11-20 13:53] LABS: ALBUMIN 3.6 g/dL (3.4-5.0); ALBUMIN/GLOBULIN RATIO 0.9 (1.0-1.7); TOTAL BILIRUBIN 0.2 mg/dL (0.2-1.0); TOTAL PROTEIN 7.5 g/dL (6.4-8.2)
== END ==
LOC: ONCLAB 12:46
PROVIDERS: ATTEND Internal Medicine Hematology & Oncology
DX: C34.32 Malignant neoplasm of lower lobe, left bronchus or lung (principal); C85.89 Other specified types of non-Hodgkin lymphoma, extranodal and solid organ sites
CPT/HCPCS: 36415; 80053; 83615; 85025

== ENCOUNTER → 2021-03-20 | Outpatient (CLI) | payer OTHER ==
[2021-03-20 11:15] LABS: BASO # 0.1 x10^3/uL (0.0-0.2); BASO % 1 % (0-3); EOS # 0.2 x10^3/uL (0.0-0.7); EOS % 3 % (0-3); HEMATOCRIT 41.8 % (36.0-47.0); HEMOGLOBIN 14.7 g/dL (12.0-15.5); LYMPH # 2.6 x10^3/uL (1.0-4.8); LYMPH % 38 % (24-48); MEAN CORPUSCULAR HEMOGLOBIN 32 pg (25-35); MEAN CORPUSCULAR HGB CONC 35 g/dL (31-37); MEAN CORPUSCULAR VOLUME 90 fL (79-100); MONO # 0.4 x10^3/uL (0.0-1.1); MONO % 5 % (0-9); NEUT # 3.7 x10^3/uL (1.8-7.7); NEUT % 53 % (31-73); PLATELET COUNT 426 x10^3/uL (140-400); RED BLOOD COUNT 4.65 x10^6/uL (3.50-5.40); RED CELL DISTRIBUTION WIDTH 13.4 % (11.5-14.5); WHITE BLOOD COUNT 6.9 x10^3/uL (4.0-11.0)
[2021-03-20 11:29] LABS: CALCIUM 8.7 mg/dL (8.5-10.1); CREATININE 0.9 mg/dL (0.6-1.0); POTASSIUM 3.8 mmol/L (3.5-5.1)
[2021-03-20 11:35] LABS: ALBUMIN 3.2 g/dL (3.4-5.0); ALBUMIN/GLOBULIN RATIO 0.7 (1.0-1.7); TOTAL BILIRUBIN 0.2 mg/dL (0.2-1.0); TOTAL PROTEIN 7.5 g/dL (6.4-8.2)
== END ==
LOC: ONCLAB 10:51
PROVIDERS: ATTEND Internal Medicine Hematology & Oncology
DX: C34.32 Malignant neoplasm of lower lobe, left bronchus or lung (principal)
CPT/HCPCS: 36415; 80053; 83615; 85025

== ENCOUNTER 2021-06-14 21:49 | Emergency (ER) | payer OTHER | END 2021-06-14 23:56 | disposition left against medical advice (07) | LOC: ER 21:49 | DX: J02.9 Acute pharyngitis, unspecified (principal); R50.9 Fever, unspecified; Z53.21 Procedure and treatment not carried out due to patient leaving prior to being seen by health care provider ==

== ENCOUNTER 2021-06-22 23:28 | Emergency (ER) | payer OTHER ==
[~2021-06-22] VITALS: Ht 154.9 cm; Wt 90.7 kg
[2021-06-23 00:35] VITALS: BP 192/96
[2021-06-23] MEDS ORDERED: IBUPROFEN 400 MG TABLET. PO ONE (01:00)
[2021-06-23] MEDS ORDERED: TETANUS AND DIPHTHERIA TOX/PF 0.5 ML DISP.SYRIN. VAX IM ONE (01:00)
[2021-06-23] MEDS ORDERED: ACETAMINOPHEN 500 MG TABLET PO ONE (01:00)
--- NOTE | 2021-06-23 01:39 | PHYS DOC ---
Past Medical History Past Medical History: Cancer, GERD Additional Past Medical Histor: non hodgkins. Past Surgical History: Hysterectomy, Other Additional Past Surgical Histo: bladder pain/1/2 lung removed left side Smoking Status: Never Smoker Alcohol Use: None Drug Use: None General Adult EDM: Chief Complaint: ANIMAL BITE HPI: HPI: Patient is a 40 year old female who presents with a dog bite to the right hand. Her own dogs were fighting each other and she tried to intervene. Dog is appropriately vaccinated. Sustained a looks like 2 bites to the ulnar aspect of the right hand and wrist. No significant bleeding. Unsure of last tetanus shot. No other injuries noted Review of Systems: Review of Systems: Constitutional: Denies fever or chills. [] HENT: Denies nasal congestion or sore throat. [] Respiratory: Denies cough or shortness of breath. [] Musculoskeletal: Reports right hand/wrist pain. Integument: Reports dog bite to right hand/wrist Heart Score: C/O Chest Pain: N/A Current Medications: Current Medications Medications (Trade) Dose Ordered Sig/[facility] Start Time Stop Time Status Last Admin Dose Admin Acetaminophen (Tylenol) 1,000 mg 1X ONCE 06/23/21 01:00 06/23/21 01:01 DC Ibuprofen (Motrin) 400 mg 1X ONCE 06/23/21 01:00 06/23/21 01:01 DC Tetanus/ Diphtheria Toxoids (Tenivac Syringe) 0.5 ml ONCE ONCE 06/23/21 01:00 06/23/21 01:01 DC Allergies: Allergies: Allergies Coded Allergies Type Severity Reaction Last Updated Verified morphine Allergy Mild Nausea and Vomiting, Itching, Hives 06/23/21 Yes Physical Exam: PE: Constitutional: Well developed, well nourished, no acute distress, non-toxic appearance. [] HENT: Normocephalic, atraumatic Cardiovascular: Normal heart rate Lungs & Thorax: Normal work of breathing Abdomen: Bowel sounds normal, soft, no tenderness, no masses, no pulsatile masses. [] Back: No tenderness, no CVA tenderness. [] Extremities: Several 1 to 2 mm puncture wounds over the ulnar aspect of the right hand and wrist. Most predominant over the hypothenar muscles. Tenderness over the fifth metacarpal proximally, and over the ulnar aspect of the carpals. Patient is able to fully flex and extend her fingers. Intact thumb opposition. Intact hand/wrist AROM. Intact finger abduction. Brisk cap refill to all fingers. No active bleeding from any of the puncture wounds. Neurologic: Alert and oriented X 3, normal motor function, normal sensory function, no focal deficits noted. More detailed right hand motor exam outlined above. [] Psychologic: Affect normal, judgement normal, mood normal. [] Current Patient Data: Vital Signs: Vital Signs Date Time Temp Pulse Resp B/P (MAP) Pulse Ox O2 Delivery O2 Flow Rate FiO2 06/23/21 00:35 97.6 82 18 192/96 (128) 98 Room Air 97.6 EKG: EKG: [] Radiology/Procedures: Radiology/Procedures: [] Impression: ED wet read of hand x-ray: Negative for acute fracture or foreign body. Official radiology read pending. Course & Med Decision Making: Course & Med Decision Making Pertinent Labs and Imaging studies reviewed. (See chart for details) Patient 40-year-old female presents with a dog bite injury to the right hand. Exam shows puncture wounds without active bleeding. No large lacerations that would require consideration of repair Tdap updated. Neurovascular intact as above on exam. Patient placed on Augmentin for infection prophylaxis. 0131 Resource Data Disclaimer: Resource Data Disclaimer: This electronic medical record was generated, in whole or in part, using a voice recognition dictation system. Departure Departure Impression: Primary Impression: Dog bite Disposition: 01 HOME / SELF CARE / HOMELESS Condition: STABLE Referrals: NO PCP (PCP) Patient Instructions: Animal Bite Additional Instructions: You will need to be placed on an antibiotic. Dog bite wounds are at high risk for infection. If you develop severe swelling, redness, pain, or thick drainage from your wounds you need to be seen by medical professional. Scripts Amoxicillin/Potassium Clav (AUGMENTIN 875-125 TABLET) 1 Each Tablet 1 TAB PO Q12HR for 7 Days, #14 TAB 0 Refills Prov: DOMINIK ROBERTS MD 06/23/21 DOMINIK ROBERTS MD Jun 23, 2021 01:39
[2021-06-23] MEDS ORDERED: AMOX1TAB61 PO (01:43)
--- NOTE | 2021-06-23 03:09 | RAD ---
Three-view right hand dated 06/23/2021. No comparison available. CLINICAL INDICATION: Pain. Dog bite FINDINGS: 3 views right hand show normal bony alignment. No displaced fracture. Focal soft tissue swelling precious g the ulnar aspect of the hand and wrist. No periostitis or bone destruction. No acute osseous or art icular abnormality. No radiopaque foreign body IMPRESSION: No acute bony abnormality. Electronically signed by: Peterson Hartman MD (06/23/2021 1:11 AM) OSITO
== END 2021-06-23 02:15 | disposition home or self-care (01) ==
LOC: ER 23:28
DX: S61.451A Open bite of right hand, initial encounter (principal); K21.9 Gastro-esophageal reflux disease without esophagitis; Z88.5 Allergy status to narcotic agent; W54.0XXA Bitten by dog, initial encounter; Y93.89 Activity, other specified; Y92.89 Other specified places as the place of occurrence of the external cause; Y99.8 Other external cause status
CPT/HCPCS: 73130; 90471; 90714; 99283-25

== ENCOUNTER → 2021-10-07 | Outpatient (CLI) | payer OTHER ==
[~2021-10-07] MED LIST changes: +AMOX1TAB61 PO
[2021-10-07 10:45] LABS: BASO % 1 % (0-3); EOS # 0.2 x10^3/uL (0.0-0.7); EOS % 3 % (0-3); HEMATOCRIT 39.8 % (36.0-47.0); HEMOGLOBIN 13.6 g/dL (12.0-15.5); LYMPH # 2.5 x10^3/uL (1.0-4.8); LYMPH % 39 % (24-48); MEAN CORPUSCULAR HEMOGLOBIN 30 pg (25-35); MEAN CORPUSCULAR HGB CONC 34 g/dL (31-37); MEAN CORPUSCULAR VOLUME 87 fL (79-100); MONO # 0.4 x10^3/uL (0.0-1.1); MONO % 6 % (0-9); NEUT # 3.2 x10^3/uL (1.8-7.7); NEUT % 51 % (31-73); PLATELET COUNT 404 x10^3/uL (140-400); RED BLOOD COUNT 4.58 x10^6/uL (3.50-5.40); RED CELL DISTRIBUTION WIDTH 13.4 % (11.5-14.5); WHITE BLOOD COUNT 6.3 x10^3/uL (4.0-11.0)
[2021-10-07 11:01] LABS: CALCIUM 9.1 mg/dL (8.5-10.1); CREATININE 0.9 mg/dL (0.6-1.0)
[2021-10-07 11:03] LABS: ALBUMIN 3.3 g/dL (3.4-5.0); ALBUMIN/GLOBULIN RATIO 0.7 (1.0-1.7); TOTAL BILIRUBIN 0.2 mg/dL (0.2-1.0); TOTAL PROTEIN 8.2 g/dL (6.4-8.2)
== END ==
LOC: ONCLAB 10:02
PROVIDERS: ATTEND Internal Medicine Hematology & Oncology
DX: C85.89 Other specified types of non-Hodgkin lymphoma, extranodal and solid organ sites (principal)
CPT/HCPCS: 36415; 80053; 82728; 83540; 83550; 83615; 85025

== ENCOUNTER → 2021-10-15 | Outpatient (CLI) | payer OTHER ==
[~2021-10-15] MED LIST changes: +IOHEXOL 300 MG/ML 100ML VIAL. IV ONE
--- NOTE | 2021-10-15 12:23 | KCIC ---
EXAM: Chest CT with intravenous contrast. HISTORY: Lung cancer follow-up. TECHNIQUE: Computed tomographic images of the chest were obtained following the administration of int ravenous contrast. Multiplanar reformatting was performed. *One or more of the following individualized dose reduction techniques were utilized for this examina tion: 1. Automated exposure control. 2. Adjustment of the mA and/or kV according to patient size. 3. Use of iterative reconstruction technique. COMPARISON: 11/13/2020. FINDINGS: There is left hemithorax volume loss with leftward mediastinal shift due to partial left daksha ng resection. There is stable atelectasis and scarring within the left lower thorax. There is no pneu mothorax or pleural effusion. There is mild emphysema. The heart is normal in size. There are stable mediastinal lymph nodes. There is stable left hilar and infrahilar suture material. There are stable lymph nodes within the right a nterior cardiophrenic angle. There is hepatic steatosis. There is no acute finding involving the upper abdomen. There is no acute or suspicious osseous finding. IMPRESSION: 1. Stable findings consistent with partial left lung resection. 2. No acute thoracic finding or evidence of recurrent or progressive malignancy. Electronically signed by: Danya Avila MD (10/15/2021 9:43 AM) [id number]
== END ==
LOC: KCIC CT 08:36
PROVIDERS: ATTEND Internal Medicine Hematology & Oncology
DX: J43.9 Emphysema, unspecified (principal); K76.0 Fatty (change of) liver, not elsewhere classified; Z90.2 Acquired absence of lung [part of]
CPT/HCPCS: 71260; Q9967